=== PATIENT | female | born 1985 | race Two or more races ===

== ENCOUNTER 2025-02-12 09:15 | Inpatient (IN) | payer OTHER ==
[~2025-02-12] VITALS: Ht 162.6 cm; Wt 74.4 kg
[2025-02-12 10:04] VITALS: BP 94/76
[2025-02-12 10:53] LABS: BASO % 1.1 % (0.1-1.2); EOS # 0.04 (0.04-0.54); EOS % 0.9 % (0.7-7.0); LYMPH # 1.44 (1.18-3.74); LYMPH % 33.0 % (19.3-53.1); MEAN PLATELET VOLUME 11.60 fl (9.4-12.4); MONO # 0.40 (0.24-0.82); MONO % 9.2 % (4.7-12.5); NEUT # 2.42 (1.56-6.13); NEUT % 55.6 % (34.0-71.1); RED CELL DISTRIBUTION WIDTH 14.8 % (11.6-14.4)
[2025-02-12 11:15] LABS: INR 1.0
[2025-02-12 11:51] LABS: ALT/SGPT 18 U/L (12-78); AST/SGOT 12 U/L (15-37); BILIRUBIN TOTAL 0.50 mg/dL (0.3-1.2); BUN CREA RATIO 12 (7.0-25.0); CREATININE SERUM 0.78 mg/dL (0.55-1.02); GFR 83.10; GLOBULINA 3.2 G/DL (2.4-3.5); GLUCOSE FASTING 98 mg/dL (65-100); HCG QUANTITATIVE < 1 mUI/mL (1-3); OSMOLALITY SERUM 284 MOSM/KG (275-295)
[2025-02-12 11:55] LABS: URINE APPEARANCE Clear; URINE BILIRRUBIN Negative (NEGATIVE); URINE BLOOD Negative; URINE COLOR Yellow; URINE GLUCOSE Negative (NEGATIVE); URINE KETONE Negative (NEGATIVE); URINE LEUKOCYTE Negative; URINE NITRATE Negative; URINE PROTEIN Negative (NEGATIVE); URINE UROBILINOGEN 0.2 E.U./dl
[2025-02-12 12:03] LABS: URINE BACTERIA 654.0 uL (0.0-1933); URINE EPITHELIAL CELLS 9.5 uL (0.0-38.8); URINE RBC 9.5 uL (0.0-20.8); URINE WBC 6.1 uL (0.0-23.2)
[2025-02-12 12:11] LABS: URINE CAST 0.00 uL (0.0-1.40)
[2025-02-20] MEDS ORDERED: CEFAZOLIN SODIUM 1,000 MG VIAL ONE ×2 (11:09→15:37)
[2025-02-20] MEDS ORDERED: VISTASEAL DUAL APPICATOR 1 EACH APPL TOP ONE (11:54)
[2025-02-20] MEDS ORDERED: THROMBIN,HU/FIBRINOGEN/CALCIUM 10 ML SYRINGE TOP ONE ×2 (11:54→13:30)
[2025-02-20] MEDS ORDERED: VASOPRESSIN 20 UNITS/ML VIAL ONE (11:54)
[2025-02-20] MEDS ORDERED: POVIDONE-IODINE 118 ML BOTT TOP ONE ×2 (11:54→13:30)
[2025-02-20] MEDS ORDERED: TRANEXAMIC ACID 100MG/1ML (1000MG) AMPUL ONE (12:09)
[2025-02-20] MEDS ORDERED: METHYLENE BLUE 50MG/10ML AMP IV ONE (12:44)
[2025-02-20] MEDS ORDERED: METHYLENE BLUE 10MG/ML 10 ML AMPUL IV ONE (13:30)
[2025-02-20] MEDS ORDERED: CEFAZOLIN SODIUM 1,000 MG VIAL IV ONE (13:30)
[2025-02-20] MEDS ORDERED: TRANEXAMIC ACID 100MG/1ML (1000MG) AMPUL IV ONE (13:30)
[2025-02-20] MEDS ORDERED: VASOPRESSIN 20 UNITS/ML VIAL IJ ONE (13:30)
[2025-02-20] MEDS ORDERED: SUGAMMADEX SODIUM 200 MG/2 ML VIAL IV ONE (13:46)
[2025-02-20] MEDS ORDERED: ACETAMINOPHEN 500 MG GEL..CAP PO SCH (18:23)
[2025-02-20] MEDS ORDERED: GABAPENTIN 300 MG CAPSULE PO SCH (18:23)
[2025-02-20] MEDS ORDERED: KETOROLAC TROMETHAMINE 30 MG VIAL IV SCH (18:23)
[2025-02-20] MEDS ORDERED: RINGERS SOLUTION,LACTATED 1,000 ML IV SCH (18:30)
[2025-02-20 22:22] VITALS: BP 98/59
[2025-02-21 01:18] VITALS: BP 95/55
[2025-02-21 07:28] LABS: BASO % 0.4 % (0.1-1.2); EOS # 0.05 (0.04-0.54); EOS % 0.5 % (0.7-7.0); LYMPH # 1.56 (1.18-3.74); LYMPH % 14.9 % (19.3-53.1); MEAN PLATELET VOLUME 11.70 fl (9.4-12.4); MONO # 1.13 (0.24-0.82); MONO % 10.8 % (4.7-12.5); NEUT # 7.64 (1.56-6.13); NEUT % 73.0 % (34.0-71.1); RED CELL DISTRIBUTION WIDTH 14.7 % (11.6-14.4)
[2025-02-21 08:00] VITALS: BP 105/68
[2025-02-21 13:22] LABS: BASO % 0.4 % (0.1-1.2); EOS # 0.10 (0.04-0.54); EOS % 0.9 % (0.7-7.0); LYMPH # 1.55 (1.18-3.74); LYMPH % 14.0 % (19.3-53.1); MEAN PLATELET VOLUME 11.00 fl (9.4-12.4); MONO # 0.97 (0.24-0.82); MONO % 8.7 % (4.7-12.5); NEUT # 8.40 (1.56-6.13); NEUT % 75.6 % (34.0-71.1); RED CELL DISTRIBUTION WIDTH 14.7 % (11.6-14.4)
[2025-02-21 16:33] VITALS: BP 99/61
[2025-02-21] MEDS ORDERED: OxyCODONE HCL 5 MG TABLET (ROXICODONE) PO PRN (20:30)
[2025-02-22] VITALS: BP 90/54
[2025-02-22 08:00] VITALS: BP 112/63
[2025-02-22] MEDS ORDERED: SOD FERRIC GLUC COMPLX/SUCROSE 62.5 MG/5 ML AMPUL IV NR (09:00)
[2025-02-22] MEDS ORDERED: KETOROLAC TROMETHAMINE 30 MG VIAL IV ONE (16:30)
== END 2025-02-22 17:23 | disposition home or self-care (01) | DRG 743 ==
LOC: SURG 02-20 09:15 → O/R 02-20 10:00 → OB/GYN 02-20 10:00 → SURG 02-20 10:30 → OB/GYN 02-20 18:24
PROVIDERS: ADMIT Student in an Organized Health Care Education/Training Program; ATTEND Student in an Organized Health Care Education/Training Program
PROC: 0TN74ZZ Release Left Ureter, Percutaneous Endoscopic Approach (ICD-10-PCS; 2025-02-20)
PROC: 8E0W4CZ Robotic Assisted Procedure of Trunk Region, Percutaneous Endoscopic Approach (ICD-10-PCS; 2025-02-20)
PROC: 0UB94ZZ Excision of Uterus, Percutaneous Endoscopic Approach (ICD-10-PCS; principal; 2025-02-20 10:30)
DX: D25.9 Leiomyoma of uterus, unspecified (principal); N94.4 Primary dysmenorrhea; N93.9 Abnormal uterine and vaginal bleeding, unspecified
CPT/HCPCS: 58545; 58350; 50715; S2900